=== PATIENT | female | born 1955 | race Caucasian/White ===

== ENCOUNTER 2020-06-01 06:38 | Observation (INO) | payer MEDICARE, SELFPAY ==
[2020-06-01] VITALS (10 sets, daily range): BP systolic 116–207; BP diastolic 44–113; PULSE 61–74; RESP 18–20; TEMP 36.1–37; O2SAT 93–100; BMI 39.1; BMI 39.6
--- NOTE | ~2020-06-01 | CT_ITS ---
EXAMINATION: CT abdomen pelvis w con EXAM DATE: 06/01/2020 08:22 INDICATION: Right upper quadrant, right lower quadrant pain. TECHNIQUE: Spiral CT of the abdomen and pelvis was performed following intravenous injection of 100 m L Omnipaque 350. Axial, coronal and sagittal images were reviewed. The dose-length product (DLP) fo r this examination was 1491.83 mGy-cm. The exposure was tailored according to patient size (auto mA exposure control), and iterative reconstruction (ASIR) was used as additional dose reduction techniqu e. Comparison is made to prior examination from 08/05/2011. FINDINGS: The liver, spleen, adrenal glands and pancreas are unremarkable. Gallbladder is unremarkab le. No biliary obstruction. There is an elongated 4 x 7 mm stone in the right ureterovesicular junc tion with thickening of the ureterovesicular junction, probably edema. There is mild hydroureteroneph rosis, perinephric and periureteral fat stranding. There is a delayed right-sided nephrogram. The khadra madeleine is not identified and has likely been surgically resected. The bladder is unremarkable. There i s no retroperitoneal or pelvic lymphadenopathy. There is mild scattered arteriosclerotic disease. The appendix is not positively visualized. There is no pericecal inflammatory change to suggest appe ndicitis. There is small sliding gastroesophageal hiatal hernia. There is expected amount of colon ic stool. No free intraperitoneal gas. The heart is normal in size. There are no pericardial or pleural effusions. The lung bases are unremarkable. There are no osteoblastic or osteolytic lesions identified. IMPRESSION: 1. Right UVJ 4 x 7 mm stone, mild obstructive nephropathy. Reviewed, dictated and finalized at location A.
--- NOTE | ~2020-06-01 | XR_ITS ---
EXAMINATION: XR abdomen/kub 1V EXAM DATE: 06/02/2020 07:54 INDICATION: Right ureteral stone. TECHNIQUE: Frontal projection of the upper abdomen, frontal projection lower abdomen/pelvis for inter pretation. Correlation is made to CT from yesterday. FINDINGS: Right UPJ 4 x 7 mm stone is likely identified, indicated on the study, expected position c orrelating to yesterday's CT. No other genitourinary calcifications identified. Nonobstructive bowel gas pattern. There are mild bony degenerative changes. IMPRESSION: Right UVJ stone identified, indicated. Reviewed, dictated and finalized at location B.
--- NOTE | ~2020-06-01 | XR_ITS ---
EXAMINATION: XR fluoroscopy no charge INDICATION: Right-sided stone extraction TECHNIQUE: Four intraoperative fluoroscopic images are submitted for review. Total fluoroscopy time i s 25.8 seconds. COMPARISON: 06/02/2020 FINDINGS: The subtle right ureterovesicular junction stone described on the comparison radiograph is not well demonstrated on the fluoroscopic images. Please refer to procedure note for full details. IMPRESSION: 1. No right ureterovesicular junction stone not well seen on the fluoroscopic images. Please refer to procedure note for full details. Reviewed, dictated and finalized at location A. IMPRESSION: 1. No right ureterovesicular junction stone not well seen on the fluoroscopic i mages. Please refer to procedure note for full details.
--- NOTE | 2020-06-01 07:14 | ED.ABDPAIN ---
HPI - Abdominal Pain General Chief Complaint: Urogenital-Female Stated Complaint: Right flank pain, painful urination Time Seen by Provider: 06/01/20 06:59 History of Present Illness HPI narrative: Patient is a 64-year-old female who presents the ER with abdominal pain. Began in her lower abdomen and has since gone up into her right mid abdomen. She feels like suprapubically she has a sharp stabbing pain but she also has a lot of sharp pain on the right side. She is tried a heating pad with no relief. She hurts with any type of positional movement. It is associated with nausea and vomiting. No fevers or chills or sweats. No overt dysuria or hematuria. Related Data Home Medications Medication Instructions Recorded Confirmed Aleve 220 mg PO Q8H PRN 06/01/20 06/01/20 Calcium 500 With D 500 mg PO DAILY 06/01/20 06/01/20 Daily Multivitamin 1 tablet PO DAILY 06/01/20 06/01/20 aspirin 81 mg PO DAILY 06/01/20 06/01/20 krill oil 350 mg PO DAILY 06/01/20 06/01/20 levothyroxine 50 mcg PO DAILY 06/01/20 06/01/20 loratadine 10 mg PO DAILY 06/01/20 06/01/20 melatonin 10 mg PO HS 06/01/20 06/01/20 oxybutynin chloride 5 mg PO DAILY PRN 06/01/20 06/01/20 oxybutynin chloride 15 mg PO DAILY 06/01/20 06/01/20 Allergies Allergy/AdvReac Type Severity Reaction Status Date / Time codeine Allergy Unknown nausea & Verified 06/01/20 13:43 vomiting Penicillins Allergy Unknown Unknown Verified 06/01/20 07:03 CODIENE Allergy Nausea and Uncoded 06/01/20 07:03 Vomiting Review of Systems Review of Systems: All systems reviewed & are unremarkable except as noted in HPI and below Constitutional: Constitutional: Denies chills and Denies fever(s) Cardiovascular: Cardiovascular: Denies chest pain Gastrointestinal: Gastrointestinal: Reports abdominal pain, Denies constipation, Denies diarrhea, Reports nausea and Reports vomiting Genitourinary: Genitourinary: Denies hematuria, Reports nocturia, Denies dysuria and Denies flank pain PMF Past Medical History Medical History Essential hypertension Hx of bladder problems s/p TOT November 2017 Hypothyroidism, unspecified Overactive bladder Renal calculus, right Sensory urge incontinence Urge incontinence Surgical History Surgical History Hx of colonoscopy nml in 2011 Hx of hysterectomy complete Family History Family History Father Cerebrovascular accident Family history of diabetes mellitus in first degree relative Family history of coronary artery disease Mother Lung cancer Other Family history of malignant neoplasm of bone Social History Social History Social History: Patient lives at home with her . She is essentially a lifelong nonsmoker. No alcohol use. No drug use. She is a full code. She nominates her daughter to be the individual would make medical decisions for her if she is not able Years smoked: 1 Smoking status: Never smoker Tobacco type: cigarettes Second hand tobacco smoke exposure: Yes Alcohol intake: current Substance use: never Substance use type: does not use Other substance usage details: very rare alcohol use Spiritual care concerns: No Exam Narrative: Exam Narrative: GENERAL: Uncomfortable-appearing, well-nourished, and in no acute distress. HEAD: Normocephalic, atraumatic. ENT: Mucous membranes moist. CHEST: Clear to auscultation. No respiratory distress. HEART: Regular rate and rhythm. Normal peripheral pulses. ABDOMEN: Soft, tender palpation along the right side of the abdomen in the upper and lower quadrants with involuntary guarding in the right lower quadrant, nondistended. EXTREMITIES: Normal range of motion. No edema. SKIN: Warm, dry, no rash. NEURO: Alert and oriented x3. Cours
[2020-06-01] MEDS: ONDANSETRON INJ 4 MG/2 ML VIAL IV PUSH (07:40)
[2020-06-01] MEDS: MORPHINE SULFATE (*CRX) 4 MG/ML INJ IV PUSH (07:40)
[2020-06-01 07:45] LABS: Basophils Absolute Auto 0.2 K/mm3 (0.0-0.1); Basophils Percent Auto 0.9 % (0.2-1.2); Eosinophils Absolute Auto 0.4 K/mm3 (0-0.3); Eosinophils Percent Auto 2.2 % (0-4.4); Hematocrit 40.6 % (37.0-47.0); Hemoglobin 12.5 g/dL (12.0-15.0); Immature Granulocyte Absolute 0.06 K/mm3 (0.00-0.031); Immature Granulocyte Percent A 0.4 % (0-0.5); Lymphocytes Absolute Auto 1.61 K/mm3 (0.9-3.2); Lymphocytes Percent Auto 9.6 % (18.3-44.2); Mean Corpuscular HGB Conc 30.8 g/dl (32-36); Mean Corpuscular Hemoglobin 25.8 pg (26-34); Mean Corpuscular Volume 83.9 fl (80-100); Mean Platelet Volume 11.3 fl (7.4-10.4); Monocytes Absolute Auto 1.2 K/mm3 (0.1-0.6); Monocytes Percent Auto 6.9 % (2.6-8.5); Neutrophils Absolute Auto 13.4 K/mm3 (1.3-6.7); Platelet Count Result 295 k/mm3 (150-375); Red Blood Count 4.84 M/mm3 (4.2-5.4); Red Cell Distribution Width 15.3 % (11.5-14.5); White Blood Count 16.7 K/mm3 (4.5-10.0)
[2020-06-01 07:49] LABS: Add Urine Microscopic? YES; Appearance Urine Cloudy (Clear); Bacteria Urine 3+ /hpf; Bilirubin Urine Negative (Negative); Blood Urine 1+ (Negative); Color Urine Yellow (Yellow); Glucose Urine UA Negative (Negative); Ketones Urine Negative (Negative); Leukocyte Esterase Ur Negative LEU/UL (Negative); Mucus Urine Rare /lpf; Nitrate Urine Negative (Negative); Protein Urine 2+ mg/dL (Negative); RBC Urine 21-50 /hpf (0-2); Specific Grav Ur 1.019 (1.001-1.035); Squamous Epithelial Cell Urine Many /hpf (Few); Urobilinogen Urine Negative mg/dL (<2.0); WBC Urine 21-30 /hpf
[2020-06-01 07:50] LABS: Alanine Aminotransferase 29 U/L (4-35); Albumin Level 3.9 g/dL (3.5-5.1); Alkaline Phosphatase 78 U/L (38-126); Anion Gap 11 mmol/L (8-16); Aspartate Amino Transferase 33 U/L (14-36); Bilirubin,Total 0.3 mg/dL (0.2-1.3); Blood Urea Nitrogen 32 mg/dL (7-17); Calcium 9.8 mg/dL (8.4-10.2); Carbon Dioxide 24 mmol/L (22-30); Chloride 104 mmol/L (98-107); Estimated CRCL calculation 58 ml/min; Estimated Glomerular Filt Rate 50; Glucose 142 mg/dL (65-105); Lipase 109 U/L (23-300); Potassium 4.2 mmol/L (3.4-5.0); Sodium 139 mmol/L (137-145)
[2020-06-01] MEDS: SODIUM CHLORIDE 0.9% IV 1,000 ML 999 ML IV CONT (09:46)
--- NOTE | 2020-06-01 12:27 | ADMGEN ---
This patient, Sarah Denson, was admitted to 2 Medical Room 261-01. Patient/family oriented to hospital policies and general routines including ID bracelet, bed and alarms, visiting hours, pain management, procedures, bathroom and other care routines, personal items, smoking policy, room service/diet, and visiting hours. Valuables list has been completed. Information on how to activate the Rapid Response Team has been discussed. Patient/Family are encouraged to report perceived risks to care and to ask questions if they do not understand what they are told or what they should do.
--- NOTE | 2020-06-01 13:13 | PM.IMHP ---
H&P: HPI History of Present Illness Date/Time: 06/01/20 13:13 THIS IS AN OBSERVATION PATIENT Chief complaint: ureterolithiasis/uti Narrative: Sarah Denson is a 64 year old female with hx of HTN and nephrolithiasis who presents with complaints of abdominal pain. Patient is followed by urology for stress urine incontinence. She saw a urologist about 2-3 weeks ago. UA at that time was negative. She was having some slight right lower quadrant pain. Pain resolved on its own. Patient was doing well until yesterday she developed again the right lower quadrant pain. The pain was very mild. She had urinary urgency but when she went to the bathroom, she voided only small volumes. She had some mild dysuria but that improved with drinking more water. She was able to sleep last night until about 2:00 a.m. this morning when she was woken with severe right lower back, flank and abdominal pain. She became diaphoretic. No fever or chills. No hematuria. She did develop nausea and vomiting with emesis of yellowish fluid but no blood. She denies any shortness of breath, cough, chest pain, palpitations, numbness/tingling in her extremities, hx of seizures or strokes, depression or anxiety. She has been having crying spells recently but her is ill in the hospital. No other complaints. Patient presented to the emergency room for evaluation. In the emergency room a blood pressure was 207/113. She states that her blood pressure normally is well controlled with her current medications. [place] count [place] [address]. BUN was 32 and creatinine 1.1. Glucose was 142. She does not have diabetes. Urinalysis showed 1+ blood but negative nitrates and negative leukocyte esterase. 21-50 red cells in 21-30 white cells but she had many squamous cells. CT of the abdomen and pelvis showed a right UVJ 4 x 7 mm stone with some mild obstructive nephropathy. She was treated with Zofran and morphine. Rocephin was given. She was started on IV fluids. She was admitted for further care. Urology has been consulted. Review of Systems Review of Systems: All systems reviewed & are unremarkable except as noted in HPI and below PMFSH Past Medical History Medical History Essential hypertension Hx of bladder problems s/p TOT November 2017 Hypothyroidism, unspecified Overactive bladder Renal calculus, right Sensory urge incontinence Urge incontinence Surgical History Surgical History Hx of colonoscopy nml in 2011 Hx of hysterectomy complete Family History Family History Father Cerebrovascular accident Family history of diabetes mellitus in first degree relative Family history of coronary artery disease Mother Lung cancer Other Family history of malignant neoplasm of bone Social History Social History Social History: Patient lives at home with her . She is essentially a lifelong nonsmoker. No alcohol use. No drug use. She is a full code. She nominates her daughter to be the individual would make medical decisions for her if she is not able Years smoked: 1 Smoking status: Never smoker Tobacco type: cigarettes Second hand tobacco smoke exposure: Yes Alcohol intake: current Substance use: never Substance use type: does not use Other substance usage details: very rare alcohol use Spiritual care concerns: No Meds Home Medications and Allergies Home Medications Medication Instructions Recorded Confirmed Type lisinopril 20 mg tablet 20 mg PO DAILY #90 tablet 04/04/20 06/01/20 Rx Aleve 220 mg PO Q8H PRN 06/01/20 06/01/20 History Calcium 500 With D 500 mg PO DAILY 06/01/20 06/01/20 History Daily Multivitamin 1 tablet PO DAILY 06/01/20 06/01/20 History aspirin 81 mg PO DAILY 06/01/20 06/01/20 History
--- NOTE | 2020-06-01 13:41 | WPDURCON ---
Assessment and Plan Assessment and plan (1) Essential hypertension: Code(s): I10 - Essential (primary) hypertension Status: Acute (2) Calculus of ureterovesical junction (UVJ): Code(s): N20.1 - Calculus of ureter Status: Acute Assessment and Plan: CT of the abdomen and pelvis showing a 7 x 4 mm calcification that is either in or bladder or the very distal-most segment of her right ureter. Get a KUB in the morning to reassess stone position. If it appears to be in the right ureter will plan endoscopic extraction sometime tomorrow. Agree with IV antibiotics for possible urinary tract infection Urology Consult Note HPI Date Seen: 06/01/20 Requesting Physician: Ti Flores MD Primary Care Provider: Fabiano Ivory MD Consult Narrative Narrative: Sarah Denson is a 64 year old female without prior history of urolithiasis, or other urological problems until presentation to the emergency department this morning where CT imaging revealed a 7 x 4 mm partially obstructing right distal ureteral calculus. She has been caring for her sick who is admitted [facility] in December of not recognize signs and symptoms of this stone. In retrospect she has had some mild intermittent right flank pain more recent onset of irritable voiding symptoms suggestive possible urinary tract infection. She denies fevers chills or gross hematuria. Review of Systems Cardiovascular: Cardiovascular: Denies chest pain, Denies lightheadedness, Denies palpitations and Denies dyspnea Respiratory: Respiratory: Denies dyspnea Gastrointestinal: Gastrointestinal: Denies diarrhea, Denies nausea and Denies vomiting Genitourinary: Genitourinary: Denies hematuria and Denies dysuria Endocrine: Endocrine: Denies palpitations PMFSH Past Medical History Medical History Essential hypertension Hx of bladder problems s/p TOT November 2017 Hypothyroidism, unspecified Overactive bladder Renal calculus, right Sensory urge incontinence Urge incontinence Surgical History Surgical History Hx of colonoscopy nml in 2011 Hx of hysterectomy complete Family History Family History Father Cerebrovascular accident Family history of diabetes mellitus in first degree relative Family history of coronary artery disease Mother Lung cancer Other Family history of malignant neoplasm of bone Social History Social History Social History: Patient lives at home with her . She is essentially a lifelong nonsmoker. No alcohol use. No drug use. She is a full code. She nominates her daughter to be the individual would make medical decisions for her if she is not able Years smoked: 1 Smoking status: Never smoker Tobacco type: cigarettes Second hand tobacco smoke exposure: Yes Alcohol intake: current Substance use: never Substance use type: does not use Other substance usage details: very rare alcohol use Spiritual care concerns: No Meds Home Medications and Allergies Home Medications Medication Instructions Recorded Confirmed Type lisinopril 20 mg tablet 20 mg PO DAILY #90 tablet 04/04/20 06/01/20 Rx Aleve 220 mg PO Q8H PRN 06/01/20 06/01/20 History Calcium 500 With D 500 mg PO DAILY 06/01/20 06/01/20 History Daily Multivitamin 1 tablet PO DAILY 06/01/20 06/01/20 History aspirin 81 mg PO DAILY 06/01/20 06/01/20 History krill oil 350 mg PO DAILY 06/01/20 06/01/20 History levothyroxine 50 mcg PO DAILY 06/01/20 06/01/20 History loratadine 10 mg PO DAILY 06/01/20 06/01/20 History melatonin 10 mg PO HS 06/01/20 06/01/20 History oxybutynin chloride 5 mg PO DAILY PRN 06/01/20 06/01/20 History oxybutynin chloride 15 mg PO DAILY 06/01/20 06/01/20 History Allergies
[2020-06-01] MEDS: SODIUM CHLORIDE 0.9% IV 1,000 ML 125 ML IV CONT ×2 (13:43→21:50)
[2020-06-01] MEDS: LEVOTHYROXINE SODIUM 50 MCG TABLET PO (16:01)
[2020-06-01] MEDS: MULTIVITAMINS THERAPEUTIC TAB (*BKC) 1 TABLET PO (16:44)
[2020-06-01] MEDS: LORATADINE 10 MG TABLET PO (16:44)
[2020-06-01] MEDS: amLODIPine BESYLATE 5 MG TABLET PO (16:44)
[2020-06-01] MEDS: HYDROcodone/acetaminophen (*CRX) 5-325 MG TABLET 1 TAB PO (16:45)
[2020-06-01 16:52] LABS: Glucose Point of Care 135 (65-105)
[2020-06-01] MEDS: MELATONIN 5 MG TABLET 10 MG PO (20:42)
[2020-06-01 20:52] LABS: Glucose Point of Care 121 (65-105)
[2020-06-02] VITALS (9 sets, daily range): BP systolic 108–177; BP diastolic 46–96; PULSE 58–65; RESP 16–23; TEMP 36.5–36.9; O2SAT 97–100
[2020-06-02 05:33] LABS: Basophils Absolute Auto 0.1 K/mm3 (0.0-0.1); Basophils Percent Auto 0.9 % (0.2-1.2); Eosinophils Absolute Auto 0.4 K/mm3 (0-0.3); Eosinophils Percent Auto 4.8 % (0-4.4); Hematocrit 37.6 % (37.0-47.0); Hemoglobin 11.5 g/dL (12.0-15.0); Immature Granulocyte Absolute 0.03 K/mm3 (0.00-0.031); Immature Granulocyte Percent A 0.4 % (0-0.5); Lymphocytes Absolute Auto 1.89 K/mm3 (0.9-3.2); Lymphocytes Percent Auto 23.3 % (18.3-44.2); Mean Corpuscular HGB Conc 30.6 g/dl (32-36); Mean Corpuscular Hemoglobin 25.7 pg (26-34); Mean Corpuscular Volume 84.1 fl (80-100); Mean Platelet Volume 11.1 fl (7.4-10.4); Monocytes Absolute Auto 0.8 K/mm3 (0.1-0.6); Monocytes Percent Auto 9.4 % (2.6-8.5); Neutrophils Percent Auto 61.2 % (45.5-73.1); Platelet Count Result 288 k/mm3 (150-375); Red Blood Count 4.47 M/mm3 (4.2-5.4); Red Cell Distribution Width 15.5 % (11.5-14.5); White Blood Count 8.1 K/mm3 (4.5-10.0)
[2020-06-02] MEDS: SODIUM CHLORIDE 0.9% IV 1,000 ML 125 ML IV CONT ×2 (05:39→13:21)
[2020-06-02 05:42] LABS: Hemoglobin A1C 5.8 % (<5.7)
[2020-06-02 06:05] LABS: Albumin Level 3.3 g/dL (3.5-5.1); Anion Gap 4 mmol/L (8-16); Blood Urea Nitrogen 18 mg/dL (7-17); Calcium 8.7 mg/dL (8.4-10.2); Carbon Dioxide 28 mmol/L (22-30); Chloride 109 mmol/L (98-107); Estimated CRCL calculation 89 ml/min; Estimated Glomerular Filt Rate > 60; Glucose 105 mg/dL (65-105); Phosphorus 3.3 mg/dL (2.5-4.5); Potassium 4.2 mmol/L (3.4-5.0); Sodium 141 mmol/L (137-145)
--- NOTE | 2020-06-02 07:35 | WPDUROPN2 ---
Progress Note: A&P Assessment and Plan (1) Urinary tract infection: Code(s): N39.0 - Urinary tract infection, site not specified Status: Acute (2) Calculus of ureterovesical junction (UVJ): Code(s): N20.1 - Calculus of ureter Status: Acute Assessment and Plan: Pain-free overnight. Await KUB to see if stone has moved/passed. Afebrile and leukocytosis improved. Subjective Subjective Date/Time Seen: 06/02/20 07:35 Pain-free overnight Review of Systems Cardiovascular: Cardiovascular: Denies chest pain, Denies lightheadedness, Denies palpitations and Denies dyspnea Respiratory: Respiratory: Denies dyspnea Gastrointestinal: Gastrointestinal: Denies diarrhea, Denies nausea and Denies vomiting Genitourinary: Genitourinary: Denies hematuria and Denies dysuria Endocrine: Endocrine: Denies palpitations Exam Const: General: no acute distress Resp: Effort & Inspection: normal respiratory effort GI: Inspection: non-distended GI Palp: No abdominal tenderness and No Guarding due to palpation present (GI) Auscultation: normal bowel sounds Objective Data Vital Signs Vital Signs: Vital Signs - 24 hr 06/01/20 10:44 06/01/20 10:45 06/01/20 10:48 Temperature Pulse Rate Respiratory Rate Blood Pressure 178/59 H Pulse Oximetry 93 93 95 06/01/20 11:23 06/01/20 11:30 06/01/20 11:51 Temperature Pulse Rate Respiratory Rate Blood Pressure Pulse Oximetry 97 97 98 06/01/20 13:43 06/01/20 18:05 06/01/20 22:00 Temperature 98.6 F 98.6 F 98.6 F Pulse Rate 61 74 68 Respiratory Rate 18 18 20 Blood Pressure 148/58 H 156/91 H 116/44 L Pulse Oximetry 98 96 98 06/02/20 02:00 06/02/20 05:59 Temperature 98.4 F 98.2 F Pulse Rate 63 64 Respiratory Rate 20 20 Blood Pressure 112/48 L 108/46 L Pulse Oximetry 98 98 Intake/Output Intake/Output: Intake & Output 05/30/20 05/31/20 06/01/20 06/02/20 23:59 23:59 23:59 23:59 Intake Total 2350 1728 Output Total 600 1100 Balance 1750 628 Meds/Results Medications: Active Medications Generic Name Dose Route Start Last Admin Trade Name Freq PRN Reason Stop Dose Admin Acetaminophen 650 mg 06/01/20 10:36 Tylenol Tablet PO Q4H PRN Mild Pain (1-3) or Fever Hydrocodone Bitart/Acetaminophen 1 tab 06/01/20 10:36 06/01/20 16:45 [place] 5-325 Mg PO 1 tab Q4H PRN Administration Pain Rated 4-6 Amlodipine Besylate 5 mg 06/01/20 13:40 06/01/20 16:44 Norvasc PO 5 mg QAM MARYLOU Administration Dextrose 12.5 gm 06/01/20 13:40 Dextrose 50% Syringe IV PUSH PRN PRN Hypoglycemia Protocol Glucagon 1 mg 06/01/20 13:40 Glucagon For Inj IM PRN PRN Hypoglycemia Protocol Glucose 15 gm 06/01/20 13:40 Glutose 15 PO PRN PRN Hypoglycemia Protocol Sodium Chloride 1,000 mls @ 125 mls/hr 06/01/20 10:40 06/02/20 05:39 Normal Saline Iv IV CONT 125 mls/hr .Q8H MARYLOU Administration Dextrose 1,000 mls @ 100 mls/hr 06/01/20 13:40 Dextrose 5% 1,000 Ml IVPB PRN PRN Hypoglycemia Protocol Insulin Aspart 3 - 6 units 06/01/20 17:00 06/01/20 16:43 Novolog SUB-Q Not Given TIDWM MARYLOU Protocol Levothyroxine Sodium 50 mcg 06/01/20 06:30 06/02/20 05:40 Synthroid PO Not Given DAILY@0630 MARYLOU Loratadine 10 mg 06/01/20 09:00 06/01/20 16:44 Claritin PO 10 mg DAILY MARYLOU Administration Melatonin 10 mg 06/01/20 21:00 06/01/20 20:42 Melatonin PO 07/01/20 21:01 10 mg HS MARYLOU Administration Morphine Sulfate 4 mg 06/01/20 10:36 Morphine Sulfate Inj (*Crx) IV PUSH Q2H PRN Pain Rated 7-10 Multivitamins Therapeutic 1 tablet 06/01/20 09:00 06/01/20 16:44 Multivitamins Therapeutic(*Bkc PO 07/02/20 09:01 1 tablet DAILY MARYLOU Administration Ondansetron HCl 4 mg 06/01/20 10:36 Zofran Inj IV PUSH Q4H PRN Nausea Radiology Results:
--- NOTE | 2020-06-02 07:46 | PC.NURSE ---
pt to radiology for KUB via wheelchair
[2020-06-02 13:26] LABS: Glucose Point of Care 83 (65-105)
--- NOTE | 2020-06-02 13:59 | WPDANESEPP ---
Anes - Eval Pre Procedure Procedure: Operation Date: 06/02/20 16:00 Proposed Procedures p Cystoscopy, Right Ureteroscopy, Stone Extraction(Right) - Devonte Last MD s Possible Holmium Laser Procedure - Devonte Last MD Date/Time: 06/02/20 13:59 Pre Op Diagnosis: ureterolithiasis/uti Patient Data Age: 64 Gender: F Height: 1.7 m Weight: 115 kg Last Vital Signs Temp 36.5 C 06/02/20 08:00 Pulse 58 L 06/02/20 08:00 Resp 16 06/02/20 08:00 BP 166/96 H 06/02/20 08:00 Pulse Ox 100 06/02/20 08:00 Allergies Allergy/AdvReac Type Severity Reaction Status Date / Time codeine Allergy Unknown nausea & Verified 06/01/20 13:43 vomiting Penicillins Allergy Unknown Unknown Verified 06/01/20 07:03 Home Medications Medication Instructions Recorded Confirmed Type lisinopril 20 mg tablet 20 mg PO DAILY #90 tablet 04/04/20 06/01/20 Rx Aleve 220 mg PO Q8H PRN 06/01/20 06/01/20 History Calcium 500 With D 500 mg PO DAILY 06/01/20 06/01/20 History Daily Multivitamin 1 tablet PO DAILY 06/01/20 06/01/20 History aspirin 81 mg PO DAILY 06/01/20 06/01/20 History krill oil 350 mg PO DAILY 06/01/20 06/01/20 History levothyroxine 50 mcg PO DAILY 06/01/20 06/01/20 History loratadine 10 mg PO DAILY 06/01/20 06/01/20 History melatonin 10 mg PO HS 06/01/20 06/01/20 History oxybutynin chloride 5 mg PO DAILY PRN 06/01/20 06/01/20 History oxybutynin chloride 15 mg PO DAILY 06/01/20 06/01/20 History Laboratory Tests 06/01/20 06/01/20 06/02/20 16:43 20:42 05:19 WBC 8.1 K/mm3 K/mm3 (4.5-10.0) RBC 4.47 M/mm3 M/mm3 (4.2-5.4) Hgb 11.5 g/dL L g/dL (12.0-15.0) Hct 37.6 % % (37.0-47.0) MCV 84.1 fl fl (80-100) MCH 25.7 pg L pg (26-34) MCHC 30.6 g/dl L g/dl (32-36) RDW 15.5 % H % (11.5-14.5) Plt Count 288 k/mm3 k/mm3 (150-375) MPV 11.1 fl H fl (7.4-10.4) Immature Gran % (Auto) 0.4 % % (0-0.5) Neut % (Auto) 61.2 % % (45.5-73.1) Lymph % (Auto) 23.3 % % (18.3-44.2) [place] % (Auto) 9.4 % H % (2.6-8.5) Eos % (Auto) 4.8 % H % (0-4.4) Baso % (Auto) 0.9 % % (0.2-1.2) Lymph # (Auto) 1.89 K/mm3 K/mm3 (0.9-3.2) [place] # (Auto) 0.8 K/mm3 H K/mm3 (0.1-0.6) Eos # (Auto) 0.4 K/mm3 H K/mm3 (0-0.3) Baso # (Auto) 0.1 K/mm3 K/mm3 (0.0-0.1) Abs Immat Gran (auto) 0.03 K/mm3 K/mm3 (0.00-0.031) Absolute Neuts (auto) 5.0 K/mm3 K/mm3 (1.3-6.7) Absolute Nucleated RBC 0.0 K/mm3 K/mm3 (0.0-0.012) Nucleated RBC % 0.0 % % (0.0-0.2) Sodium Potassium Chloride Carbon Dioxide Anion Gap BUN Creatinine Estim Creat Clear Calc Estimated GFR Glucose POC Capillary Glucose 135 mg/dl H mg/dl 121 mg/dl H mg/dl (65-105) (65-105) Hemoglobin A1c Calcium Phosphorus Albumin 06/02/20 06/02/20 06/02/20 05:19 05:19 13:24 WBC RBC Hgb Hct MCV MCH MCHC RDW Plt Count MPV Immature Gran % (Auto) Neut % (Auto) Lymph % (Auto) [place] % (Auto) Eos % (Auto) Baso % (Auto) Lymph # (Auto) [place] # (Auto) Eos # (Auto) Baso # (Auto) Abs Immat Gran (auto) Absolute Neuts (auto) Absolute Nucleated RBC Nucleated RBC % Sodium 141 mmol/L mmol/L (137-145) Potassium 4.2 mmol/L mmol/L (3.4-5.0) Chloride 109 mmol/L H mmol/L (98-107) Carbon Dioxide 28 mmol/L mmol/L (22-30) Anion Gap 4 mmol/L L
--- NOTE | 2020-06-02 14:37 | PC.NURSE ---
to surgery via stretcher, OR nurse got daughter's phone number to keep her updated
[2020-06-02] MEDS: LACTATED RINGERS 1,000 ML 30 ML IV CONT (15:30)
--- NOTE | 2020-06-02 15:36 | WPDANESEFPP ---
Anes - Eval Final PreProcedure Day of Procedure 06/02/20 15:36 Patient weight: morbidly obese Heart: regular rate and rhythm Lungs: clear to auscultation Airway: Mallampati scale class II Neurological: alert and oriented Last oral intake: >/= 8 hours ASA classification: III Emergent: no Anesthetic plan: proceed Anesthesia type and monitoring: general LMA and standard monitoring Informed Consent: The patient's anesthetic plan and its attendant risks and benefits were discussed with the patient/family/POA. Questions were solicited and answers provided to the satisfaction of the patient/family/POA.
--- NOTE | 2020-06-02 15:58 | WPDHPUPDATE1 ---
History and Physical Update Update Date/Time: 06/02/20 15:58 KUB: persistent stone in distal right ureter. Will plan cystoscopy, right ureteroscopy with stone extraction, possible laser lithotripsy. History and Physical has been reviewed, including an updated exam of the patient. There are NO changes in the patient's condition. Risks, benefits, and alternatives have been discussed and questions answered. Patient agrees to proceed with procedure.
[2020-06-02] MEDS: ceFAZolin 2 GM/D5W 50 ML 2 GM/50 ML BAG IVPB (16:02)
[2020-06-02] MEDS: LIDOCAINE HCL 2% GEL UROJET 10 ML PKG MUCOUS MEM (16:17)
[2020-06-02] MEDS: KETOROLAC 30 MG/ML VIAL (*BKC) IV PUSH (16:23)
--- NOTE | 2020-06-02 16:26 | PM.PROC ---
Procedure Note - Detailed Date of procedure: 06/02/20 Pre-op diagnosis: ureterolithiasis/uti Post-op diagnosis: same Procedure performed: Cystoscopy, right ureteroscopy with stone extraction. Description of procedure: The patient was brought to the operative suite where she is prepped and draped in a routine sterile fashion while in the dorsal lithotomy position after the uneventful induction of a general LMA anesthetic. A 19F rigid cystoscope was placed in the bladder. The patient had no evidence of urethral stricture or bladder neck contracture. The bladder mucosa was endoscopically normal without hyperemia or neoplasm. There was a single, orthotopic ureteral orifice bilaterally. A 0.035 glidewire was advanced into the [] renal pelvis under fluoroscopy. The distal ureter was dilated with an 8F/10F ureteral dilator. Ureteroscopy was undertaken with a short, tapered, semi-rigid ureteroscope and the stone was extracted with ease using a [1.9F Escape disposable stone basket]. Due to the ease of this manipulation I opted not to place a ureteral stent. The patient's bladder was emptied and was taken to the recovery room having tolerated this procedure well. Anesthesia: GLMA Surgeon: Devonte Last MD Estimated blood loss (mL): 0 Drains: No Packing: No Pathology: yes (Right ureteral stone) Complications: No immediate complications Condition: stable Disposition: PACU
--- NOTE | 2020-06-02 17:21 | PM.DS ---
DS: Admitting Diagnosis Admitting Diagnosis Admitting Diagnosis: ureterolithiasis/uti DS: Discharge Diagnosis Discharge Diagnosis (1) Calculus of ureterovesical junction (UVJ): Code(s): N20.1 - Calculus of ureter Status: Acute Assessment and Plan: CT scan showing elongated 4 x 7 mm stone in the right ureterovesicular junction with thickening of the ureterovesicular junction, probably edema and mild hydroureteronephrosis, perinephric and periureteral fat stranding. There is a delayed right-sided nephrogram. UA noted. Patient started on IV fluids and Rocephin. Urology consulted. She did not pass the stone so she was taked to the OR and had cystoscopy with right ureteroscopy and stone extraction. She tolerated the procedure well. She was able to be discharged home. (2) Obstructive nephropathy: Code(s): N13.8 - Other obstructive and reflux uropathy Status: Acute Assessment and Plan: As above (3) Essential hypertension: Code(s): I10 - Essential (primary) hypertension Status: Acute Assessment and Plan: Blood pressure markedly elevated on admission probably related to pain. Blood pressure has improved with narcotics and better pain control. Home meds contnued. Patietn to follow up with PCP for further evaluation. (4) Renal insufficiency: Code(s): N28.9 - Disorder of kidney and ureter, unspecified Status: Acute Assessment and Plan: Estimated GFR of 50. BUN creatinine elevated. Gregory related to her obstructive nephropathy. She could be dehydrated given the nausea and vomiting. With IV fluids, eGFR normalized. (5) Hyperglycemia: Code(s): R73.9 - Hyperglycemia, unspecified Status: Acute Assessment and Plan: Glucose mildly elevated on admission but improved since admission. A1c 5.8. Hyperglycemia probably a stress response. (6) Hypothyroidism, unspecified: Code(s): E03.9 - Hypothyroidism, unspecified Status: Acute Assessment and Plan: No recent TSH listed. We continued Synthroid. DS: Summary Hospital Course Reason for hospitalization: 64yo female here for abd pain and found to have a retained ureteral stone. Please see H&P for details. Hospital Course: As above Time Spent with Patient Time attestation: Total time spent providing and/or coordinating discharge services:31 minutes Time spent: Greater than 30 minutes Specific discharge activities: Patient seen and examined; chart reviewed; discussed with urology Exam Narrative: Exam Narrative: AF 98.3 161/79 60 23 98% ra Gen - NARD Chest - CTA bilat CV - RRR S1/S2 Abd - abdomen was soft. minimal RLQ tenderness. no guarding Ext - no edema Psych - normal mood and affect. Skin - warm and dry. DS: Data Data Completed and Pending Pending studies at discharge: Pending at discharge 06/02/20 16:21 Surgical [PTH] Routine Labs on day of discharge: Labs from last 24 hours 06/02/20 06/02/20 06/02/20 13:24 05:19 05:19 WBC RBC Hgb Hct MCV MCH MCHC RDW Plt Count MPV Immature Gran % (Auto) Neut % (Auto) Lymph % (Auto) [place] % (Auto) Eos % (Auto) Baso % (Auto) Lymph # (Auto) [place] # (Auto) Eos # (Auto) Baso # (Auto) Abs Immat Gran (auto) Absolute Neuts (auto) Absolute Nucleated RBC Nucleated RBC % Sodium 141 Potassium 4.2 Chloride 109 H Carbon Dioxide 28 Anion Gap 4 L BUN 18 H D Creatinine 0.70 Estim Creat Clear Calc 89 Estimated GFR > 60 Glucose 105 POC Capillary Glucose 83 Hemoglobin A1c 5.8 H Calcium 8.7 Phosphorus 3.3 Albumin 3.3 L 06/02/20 06/01/20 05:19 20:42 WBC 8.1 RBC 4.47 Hgb 11.5 L Hct 37.6 MCV 84.1 MCH 25.7 L MCHC 30.6 L RDW 15.5 H Plt Count 288 MPV 11.1 H Immature Gran % (Auto) 0.4 Neut % (Auto) 61.2 Lymph % (Auto)
--- NOTE | 2020-06-02 17:48 | PC.NURSE ---
pt returned from procedure, able to ambulate without difficulty
[2020-06-02] MEDS: amLODIPine BESYLATE 5 MG TABLET PO (18:02)
[2020-06-02 18:09] LABS: Glucose Point of Care 95 (65-105)
--- NOTE | 2020-06-03 15:12 | PC.NURSE ---
Urine cx growing Enterococcus species. Patient dc on Macrobid, which is susceptible.
== END 2020-06-02 19:45 | disposition home or self-care (01) ==
LOC: ANHED 07:47 → ANH2MED 12:12
PROVIDERS: Urology; Admitting Provider Internal Medicine; Emergency Provider Emergency Medicine; PCP Family Medicine; Visit Provider Internal Medicine
PROC: (CPT 52352; principal; 2020-06-02 16:00)
PROC: (CPT 52352; 2020-06-02 16:00)
DX: N20.1 Calculus of ureter (principal); N13.8 Other obstructive and reflux uropathy; N39.0 Urinary tract infection, site not specified; I10 Essential (primary) hypertension; E66.01 Morbid (severe) obesity due to excess calories; E03.9 Hypothyroidism, unspecified; R73.9 Hyperglycemia, unspecified; Z87.442 Personal history of urinary calculi; Z68.39 Body mass index [BMI] 39.0-39.9, adult
CPT/HCPCS: 52352; 36415; 74018; 74177; 76000; 80053; 80069; 81001; 82365; 83036; 83690; 85025; 87077; 87086; 87088; 87186; 88300; 96361; 96365; 96375; 99285; A9270; C1769; G0378; J0690; J0696; J1100; J1885; J2270; J2405; J2704; J3010; J7030; J7120; Q9967

== ENCOUNTER 2022-07-28 01:14 | Day surgery (SDC) | payer MEDICARE, SELFPAY ==
[2022-07-13 14:51] VITALS: BMI 43.1
--- NOTE | 2022-07-27 13:57 | PM.HPGS ---
History of Present Illness History of Present Illness Consent: Risks, benefits, and alternatives have been discussed and questions answered. Patient agrees to proceed with procedure. Chief complaint: neoplasm screening Narrative: Sarah Denson is a 66 year old female who was referred for colon cancer screening. Her last colonoscopy was 10 years ago. Review of Systems Review of Systems: All systems reviewed & are unremarkable except as noted in HPI and below PMFSH Past Medical History Medical History Essential hypertension Hx of bladder problems s/p TOT November 2017 Hypothyroidism, unspecified Overactive bladder Renal calculus, right Sensory urge incontinence Urge incontinence Surgical History Surgical History Hx of colonoscopy nml in 2011 Hx of hysterectomy complete Family History Family History Father Cerebrovascular accident Family history of diabetes mellitus in first degree relative Family history of coronary artery disease Mother Lung cancer Other Family history of malignant neoplasm of bone Social History Social History Social History: Patient lives at home with her . She is essentially a lifelong nonsmoker. No alcohol use. No drug use. She is a full code. She nominates her daughter to be the individual would make medical decisions for her if she is not able Years smoked: 1 Smoking status: Never smoker Tobacco type: cigarettes Second hand tobacco smoke exposure: Yes Alcohol intake: current Alcohol use details: rarely Substance use: never Substance use type: does not use Other substance usage details: very rare alcohol use Living arrangements: alone Spiritual care concerns: No Meds Home Medications and Allergies Home Medications Medication Instructions Recorded Confirmed Type Aleve 220 mg PO Q8H PRN Mild Pain (Scale 06/01/20 07/28/22 History Score 1-4) Daily Multivitamin 1 tablet PO DAILY 06/01/20 07/28/22 History aspirin 81 mg chewable tablet 81 mg PO DAILY 06/01/20 07/28/22 History krill oil 350 mg PO DAILY 06/01/20 07/28/22 History loratadine 10 mg capsule 10 mg PO DAILY 06/01/20 07/28/22 History melatonin 10 mg PO HS insomnia 06/01/20 07/28/22 History oxybutynin chloride 5 mg tablet 5 mg PO DAILY PRN Incontinence 06/01/20 07/28/22 History levothyroxine 50 mcg tablet 50 mcg PO DAILY #90 tabs 05/24/22 07/28/22 Rx lisinopril 20 mg tablet See Rx Instructions .Route 05/24/22 07/28/22 Rx .COMPLEX #90 tabs calcium carbonate 500 mg calcium 500 mg PO DAILY 06/01/22 07/28/22 History (1,250 mg) chewable tablet (Calcium 500) cyanocobalamin (vitamin B-12) 2,500 mcg PO DAILY 06/01/22 07/28/22 History 2,500 mcg tablet trospium 20 mg tablet 20 mg PO BID 06/01/22 07/28/22 History vit C 133.3 1 tablet PO DAILY 06/01/22 07/28/22 History qf-novwjdxtukkw-lgyxida-elderberry 16.7 mg chewable tablet (Emergen-C Elderberry) Allergies Allergy/AdvReac Type Severity Reaction Status Date / Time codeine Allergy Unknown nausea & Verified 07/28/22 12:24 vomiting Penicillins Allergy Unknown Rash Verified 07/28/22 12:24 Exam Resp: Auscultation: clear to auscultation bilaterally Cardio: Rate: regular rate Rhythm: regular rhythm GI: GI Palp: Yes Soft to palpation and No Tenderness to palpation present (GI) Assessment and Plan Assessment and plan (1) Screening for colon cancer: Code(s): Z12.11 - Encounter for screening for malignant neoplasm of colon Status: Acute Assessment and Plan: Colonoscopy with possible biopsy or polypectomy or cautery or injection of substances.
[2022-07-28] MEDS: LACTATED RINGERS 1,000 ML 150 ML IV CONT (12:19)
[2022-07-28 12:26] VITALS: BP 156/94; PULSE 75; RESP 18; TEMP 36.4; O2SAT 96
--- NOTE | 2022-07-28 13:01 | WPDANESEPPF ---
Anes - Initial Pre Proc Eval Procedure: Operation Date: 07/28/22 13:30 Proposed Procedures p Screening Colonoscopy - Saul Gan MD Date/Time: 07/28/22 13:01 Surgeon: Saul Gan MD Pre Op Diagnosis: neoplasm screening Patient Data Age: 66 Gender: F Height: 1.7 m Weight: 121.3 kg Last Vital Signs Temp 36.4 C 07/28/22 12:26 Pulse 75 07/28/22 12:26 Resp 18 07/28/22 12:26 BP 156/94 H 07/28/22 12:26 Pulse Ox 96 07/28/22 12:26 O2 Del Method Room Air 07/28/22 12:26 Allergies Allergy/AdvReac Type Severity Reaction Status Date / Time codeine Allergy Unknown nausea & Verified 07/28/22 12:24 vomiting Penicillins Allergy Unknown Rash Verified 07/28/22 12:24 Home Medications Medication Instructions Recorded Confirmed Type Aleve 220 mg PO Q8H PRN Mild Pain (Scale 06/01/20 07/28/22 History Score 1-4) Daily Multivitamin 1 tablet PO DAILY 06/01/20 07/28/22 History aspirin 81 mg chewable tablet 81 mg PO DAILY 06/01/20 07/28/22 History krill oil 350 mg PO DAILY 06/01/20 07/28/22 History loratadine 10 mg capsule 10 mg PO DAILY 06/01/20 07/28/22 History melatonin 10 mg PO HS insomnia 06/01/20 07/28/22 History oxybutynin chloride 5 mg tablet 5 mg PO DAILY PRN Incontinence 06/01/20 07/28/22 History levothyroxine 50 mcg tablet 50 mcg PO DAILY #90 tabs 05/24/22 07/28/22 Rx lisinopril 20 mg tablet See Rx Instructions .Route 05/24/22 07/28/22 Rx .COMPLEX #90 tabs calcium carbonate 500 mg calcium 500 mg PO DAILY 06/01/22 07/28/22 History (1,250 mg) chewable tablet (Calcium 500) cyanocobalamin (vitamin B-12) 2,500 mcg PO DAILY 06/01/22 07/28/22 History 2,500 mcg tablet trospium 20 mg tablet 20 mg PO BID 06/01/22 07/28/22 History vit C 133.3 1 tablet PO DAILY 06/01/22 07/28/22 History ya-carypriubuai-lenljmu-elderberry 16.7 mg chewable tablet (Emergen-Calin Elderberry) Patient hx anesthesia problems: none Family hx anesthesia problems: none Results Review: All pre-operative results and documents have been reviewed as part of the pre-operative evaluation. ON LICENSE OF [facility] Past Medical History Medical History (Updated 06/21/22 @ 15:08 by LOREN Fuentes) Essential hypertension Hx of bladder problems s/p TOT November 2017 Hypothyroidism, unspecified Overactive bladder Renal calculus, right Sensory urge incontinence Urge incontinence Surgical History Surgical History Hx of colonoscopy nml in 2011 Hx of hysterectomy complete Family History Family History Father Cerebrovascular accident Family history of diabetes mellitus in first degree relative Family history of coronary artery disease Mother Lung cancer Other Family history of malignant neoplasm of bone Social History Social History Social History: Patient lives at home with her . She is essentially a lifelong nonsmoker. No alcohol use. No drug use. She is a full code. She nominates her daughter to be the individual would make medical decisions for her if she is not able Years smoked: 1 Smoking status: Never smoker Tobacco type: cigarettes Second hand tobacco smoke exposure: Yes Alcohol intake: current Alcohol use details: rarely Substance use: never Substance use type: does not use Other substance usage details: very rare alcohol use Living arrangements: alone Spiritual care concerns: No Anes - Eval Final PreProcedure Day of Procedure 07/28/22 13:01 Patient weight: morbidly obese Heart: regular rate and rhythm Lungs: clear to auscultation Airway: Mallampati scale class II Neurological: alert and oriented Last oral intake: >/= 8 hours ASA classification: III Emergent: no Anesthetic plan: proceed Anesthesia type and monitoring: general GIVS and standard monitoring Results R
[2022-07-28 13:50] VITALS: BP 126/66; PULSE 62; RESP 13; O2SAT 97
[2022-07-28 14:00] VITALS: BP 126/70; PULSE 65; RESP 17; O2SAT 98
[2022-07-28 14:10] VITALS: BP 163/88; PULSE 63; RESP 26; O2SAT 99
== END 2022-07-28 14:18 | disposition home or self-care (01) ==
PROVIDERS: PCP Family Medicine; Visit Provider Internal Medicine Gastroenterology
PROC: 0DJD8ZZ Inspection of Lower Intestinal Tract, Via Natural or Artificial Opening Endoscopic (ICD-10-PCS; CPT 45378; principal; 2022-07-28 13:30)
DX: Z12.11 Encounter for screening for malignant neoplasm of colon (principal); K62.1 Rectal polyp; I10 Essential (primary) hypertension; E03.9 Hypothyroidism, unspecified; N32.81 Overactive bladder; Z79.82 Long term (current) use of aspirin; E66.01 Morbid (severe) obesity due to excess calories; Z68.41 Body mass index [BMI] 40.0-44.9, adult
CPT/HCPCS: 45380; 88305; J2704; J7120

== ENCOUNTER 2022-08-04 15:18 | Outpatient (CLI) | payer MEDICARE, SELFPAY ==
--- NOTE | ~2022-08-04 | MM_ITS ---
EXAMINATION: MM screening [facility] BI w alexandro HISTORY: Screening mammogram TECHNIQUE: Craniocaudal and mediolateral oblique 3-D tomosynthesis images were obtained and synthetic 2-D images were generated. CAD analysis was submitted and interpreted. COMPARISON: 06/09/2011 BREAST PARENCHYMAL COMPOSITION: There are scattered areas of fibroglandular density. FINDINGS: There is chronic focal asymmetry in the upper outer quadrant of the left breast. No suspici ous mass, calcification, or architectural distortion are identified in either breast to suggest malig josette. There has been no suspicious interval change. IMPRESSION: 1. No mammographic evidence of malignancy. 2. Recommend routine screening mammography in one year. BI-RADS Category 2: Benign finding(s). Reviewed, dictated and finalized at location A. [facility]
== END 2022-08-04 15:19 | disposition home or self-care (01) ==
LOC: ANHIMG 15:22
PROVIDERS: PCP Family Medicine; Visit Provider Nurse Practitioner Family
DX: Z12.31 Encounter for screening mammogram for malignant neoplasm of breast (principal)
CPT/HCPCS: 77063; 77067

== ENCOUNTER 2024-04-10 11:49 | Outpatient (CLI) | payer MEDICARE, SELFPAY ==
[2024-04-10 12:17] LABS: Basophils Absolute Auto 0.1 K/mm3 (0.0-0.1); Basophils Percent Auto 0.8 % (0.2-1.2); Eosinophils Absolute Auto 0.1 K/mm3 (0-0.3); Eosinophils Percent Auto 1.1 % (0-4.4); Hematocrit 44.3 % (37.0-47.0); Hemoglobin 13.9 g/dL (12.0-15.0); Immature Granulocyte Absolute 0.03 K/mm3 (0.00-0.031); Immature Granulocyte Percent A 0.3 % (0-0.5); Lymphocytes Absolute Auto 1.03 K/mm3 (0.9-3.2); Lymphocytes Percent Auto 11.4 % (18.3-44.2); Mean Corpuscular HGB Conc 31.4 g/dl (32-36); Mean Corpuscular Hemoglobin 27.1 pg (26-34); Mean Corpuscular Volume 86.5 fl (80-100); Mean Platelet Volume 11.2 fl (7.4-10.4); Monocytes Absolute Auto 0.8 K/mm3 (0.1-0.6); Monocytes Percent Auto 8.6 % (2.6-8.5); Neutrophils Percent Auto 77.8 % (45.5-73.1); Platelet Count Result 270 k/mm3 (150-375); Red Blood Count 5.12 M/mm3 (4.2-5.4); Red Cell Distribution Width 15.4 % (11.5-14.5)
[2024-04-10 12:26] LABS: Alanine Aminotransferase 27 U/L (6-35); Albumin Level 4.3 g/dL (3.5-5.1); Alkaline Phosphatase 82 U/L (38-126); Anion Gap 11 mmol/L (4-12); Aspartate Amino Transferase 25 U/L (14-36); Bilirubin,Total 0.8 mg/dL (0.2-1.3); Blood Urea Nitrogen 15 mg/dL (7-17); Carbon Dioxide 26 mmol/L (22-30); Chloride 99 mmol/L (98-107); Estimated Glomerular Filt Rate > 60; Glucose 109 mg/dL (65-110); Potassium 3.9 mmol/L (3.4-5.0); Sodium 136 mmol/L (137-145)
[2024-04-10 13:22] LABS: Free T4 Free Thyroxine 1.55 ng/mL (0.78-2.19)
== END 2024-04-10 11:50 | disposition home or self-care (01) ==
LOC: ANHLAB 11:52
PROVIDERS: PCP Family Medicine; Visit Provider Nurse Practitioner Adult Health
DX: R41.3 Other amnesia (principal); R41.0 Disorientation, unspecified; F41.9 Anxiety disorder, unspecified
CPT/HCPCS: 36415; 80053; 84439; 84443; 85025

== ENCOUNTER 2024-04-27 08:18 | Outpatient (CLI) | payer MEDICARE, SELFPAY ==
--- NOTE | ~2024-04-27 | MR_ITS ---
MRI of the brain Clinical History: Disorientation Technique: Axial and sagittal T1-weighted images were acquired. These were followed by axial T2-weigh antoinette, diffusion weighted, gradient, and FLAIR images. Findings: There is no significant signal abnormality in the brain parenchyma. No acute infarct, intra cranial hemorrhage, or mass lesion seen. Ventricles and subarachnoid spaces are unremarkable. Orbits are unremarkable. Paranasal sinuses and m astoid air cells are clear. Major intracranial flow voids are intact. Sagittal midline structures are intact. IMPRESSION: No significant abnormality seen. Reviewed, dictated and finalized at location M.
== END 2024-04-27 08:19 | disposition home or self-care (01) ==
LOC: MICIMG 08:18
PROVIDERS: PCP Family Medicine; Visit Provider Nurse Practitioner Adult Health
DX: R41.0 Disorientation, unspecified (principal)
CPT/HCPCS: 70551